=== PATIENT | female | born 1955 | race Caucasian/White ===

== ENCOUNTER 2022-10-15 23:43 | Emergency (ER) | payer SELFPAY ==
[~2022-10-15] VITALS: Ht 149.9 cm; Wt 61.4 kg
[2022-10-15 23:53] VITALS: BP 161/88
== END 2022-10-16 00:11 ==
LOC: ER 23:43
DX: I10 Essential (primary) hypertension (principal); F10.90 Alcohol use, unspecified, uncomplicated; Y90.9 Presence of alcohol in blood, level not specified
CPT/HCPCS: 99283